=== PATIENT | male | born 1980 | race American Indian/Alaskan Native ===

== ENCOUNTER 2016-09-19 10:56 | Emergency (ER) | payer SELFPAY ==
--- NOTE | 2016-09-19 15:12 | Emergency Department Report ---
ED Upper Extremity Inj HPI - General Chief Complaint: Extremity Problem,Nontraumatic Stated Complaint: FINGER SWELLING Source: patient Mode of arrival: Ambulatory Limitations: No Limitations - History of Present Illness MD Complaint: Injury to:: right, finger (the fourth and fifth interspace digits) -: Gradual Other Extremity Injury: Fingers: Right (between the fourth and fifth digit) Other Injuries: none Handedness: right Severity scale (0 -10): 3 Improves With: none Context: laceration Associated Symptoms: denies other symptoms Treatments Prior to Arrival: cold therapy - Related Data Previous Rx's Medication Instructions Recorded Last Taken Type HYDROcodone/APAP 7.5-325 [[place] 1 each PO Q6HR PRN #30 tablet 03/10/14 Unknown Rx 7.5/325 mg] Meloxicam [Mobic] 7.5 mg PO QDAY #60 tablet 08/22/14 Unknown Rx traMADol [Ultram 50 MG tab] 50 mg PO Q6HR PRN #20 tablet 08/22/14 Unknown Rx Cephalexin [Keflex] 500 mg PO BID #20 capsule 09/19/16 Unknown Rx Ibuprofen [Motrin 800 MG tab] 800 mg PO Q8HR PRN #30 tablet 09/19/16 Unknown Rx Allergies Allergy/AdvReac Type Severity Reaction Status Date / Time No Known Allergies Allergy Verified 02/11/14 00:12 ED Review of Systems ROS: Stated complaint: FINGER SWELLING Other details as noted in HPI Constitutional: denies: chills, fever Cardiovascular: denies: chest pain, palpitations Endocrine: no symptoms reported Gastrointestinal: denies: abdominal pain, nausea, diarrhea Genitourinary: denies: urgency, dysuria Skin: change in color, other ED Past Medical Hx - Past Medical History Previous Medical History?: No - Surgical History Past Surgical History?: No - Social History Smoking Status: Current Every Day Smoker Substance Use Type: Alcohol - Medications Home Medications: Home Medications Medication Instructions Recorded Confirmed Last Taken Type HYDROcodone/APAP 7.5-325 [[place] 1 each PO Q6HR PRN #30 tablet 03/10/14 Unknown Rx 7.5/325 mg] Meloxicam [Mobic] 7.5 mg PO QDAY #60 tablet 08/22/14 Unknown Rx traMADol [Ultram 50 MG tab] 50 mg PO Q6HR PRN #20 tablet 08/22/14 Unknown Rx Cephalexin [Keflex] 500 mg PO BID #20 capsule 09/19/16 Unknown Rx Ibuprofen [Motrin 800 MG tab] 800 mg PO Q8HR PRN #30 tablet 09/19/16 Unknown Rx ED Physical Exam - General Limitations: No Limitations General appearance: alert, in no apparent distress - Head Head exam: Present: atraumatic, normocephalic - Eye Eye exam: Present: normal appearance, EOMI - Cardiovascular Cardiovascular Exam: Present: regular rate - Skin Skin exam: Present: other (erythematous warm cellulitic lesion between the fourth and fifth digit of the right hand. Tender to palpate) ED Course Vital Signs 09/19/16 10:59 Temperature 98.7 F Pulse Rate 78 Blood Pressure 158/108 O2 Sat by Pulse 98 Oximetry Critical care attestation.: If time is entered above; I have spent that time in minutes in the direct care of this critically ill patient, excluding procedure time. ED Disposition Clinical Impression: Cellulitis and abscess of finger, unspecified Disposition: DISCHARGED TO HOME OR SELFCARE Is pt being admited?: No Does the pt Need Aspirin: No Condition: Stable Instructions: Cellulitis (ED) Additional Instructions: Very important for you to take her antibiotic as prescribed and completed. Ibuprofen when necessary for pain management. Please do warm soaks to your hand. Follow-up in the emergency room in 3-5 days for recheck. Prescriptions: Cephalexin [Keflex] 500 mg PO BID #20 capsule Ibuprofen [Motrin 800 MG tab] 800 mg PO Q8HR PRN #30 tablet PRN Reason: Pain Referrals: PRIMARY CARE, [Primary Care Provider] - 3-5 Days Forms: Work/School Release Form(ED)
[2016-09-19 15:24] VITALS: BP 146/100
== END 2016-09-19 15:23 | disposition home or self-care (01) ==
LOC: ED 10:56
DX: L03.011 Cellulitis of right finger (principal); L02.511 Cutaneous abscess of right hand; F17.200 Nicotine dependence, unspecified, uncomplicated
CPT/HCPCS: 99282

== ENCOUNTER 2019-01-19 10:03 | Emergency (ER) | payer SELFPAY ==
[2019-01-19 10:10] VITALS: BP 148/89
--- NOTE | 2019-01-19 10:52 | Emergency Department Report ---
ED Back Pain/Injury HPI - General Chief Complaint: Back Pain/Injury Stated Complaint: BACK PAIN Time Seen by Provider: 01/19/19 10:26 Source: patient Limitations: No Limitations - History of Present Illness Initial Comments: Patient presents to emergency department she complained of lower back pain after lifting a box 24 days ago. Patient denies any issues with his bladder or bowel. MD Complaint: back pain -: Sudden Similar Symptoms Previously: No Radiation: none Severity: moderate Severity scale (0 -10): 5 Quality: dull, aching Consistency: constant Worsens With: movement Context: while lifting Associated Symptoms: denies other symptoms - Related Data Previous Rx's Medication Instructions Recorded Last Taken Type HYDROcodone/APAP 7.5-325 [[place] 1 each PO Q6HR PRN #30 tablet 03/10/14 Unknown Rx 7.5/325 mg] Meloxicam [Mobic] 7.5 mg PO QDAY #60 tablet 08/22/14 Unknown Rx traMADol [Ultram 50 MG tab] 50 mg PO Q6HR PRN #20 tablet 08/22/14 Unknown Rx Cephalexin [Keflex] 500 mg PO BID #20 capsule 09/19/16 Unknown Rx Ibuprofen [Motrin 800 MG tab] 800 mg PO Q8HR PRN #30 tablet 09/19/16 Unknown Rx Acetaminophen/Codeine [Tylenol 1 tab PO Q6H PRN #15 tab 01/19/19 Unknown Rx /Codeine # 3 tab] Naproxen [Naprosyn] 500 mg PO BID PRN #20 tablet 01/19/19 Unknown Rx predniSONE [Deltasone] 20 mg PO DAILY #15 tablet 01/19/19 Unknown Rx Allergies Allergy/AdvReac Type Severity Reaction Status Date / Time No Known Allergies Allergy Verified 02/11/14 00:12 ED Review of Systems ROS: Stated complaint: BACK PAIN Other details as noted in HPI Constitutional: denies: chills, fever Eyes: denies: eye pain, eye discharge, vision change ENT: denies: ear pain, throat pain Respiratory: denies: cough, shortness of breath, wheezing Cardiovascular: denies: chest pain, palpitations Endocrine: no symptoms reported Gastrointestinal: denies: abdominal pain, nausea, diarrhea Genitourinary: denies: urgency, dysuria Musculoskeletal: back pain. denies: joint swelling, arthralgia Skin: denies: rash, lesions Neurological: denies: headache, weakness, paresthesias Psychiatric: denies: anxiety, depression Hematological/Lymphatic: denies: easy bleeding, easy bruising ED Past Medical Hx - Past Medical History Previous Medical History?: No - Surgical History Past Surgical History?: No - Social History Smoking Status: Current Every Day Smoker Substance Use Type: None - Medications Home Medications: Home Medications Medication Instructions Recorded Confirmed Last Taken Type HYDROcodone/APAP 7.5-325 [[place] 1 each PO Q6HR PRN #30 tablet 03/10/14 Unknown Rx 7.5/325 mg] Meloxicam [Mobic] 7.5 mg PO QDAY #60 tablet 08/22/14 Unknown Rx traMADol [Ultram 50 MG tab] 50 mg PO Q6HR PRN #20 tablet 08/22/14 Unknown Rx Cephalexin [Keflex] 500 mg PO BID #20 capsule 09/19/16 Unknown Rx Ibuprofen [Motrin 800 MG tab] 800 mg PO Q8HR PRN #30 tablet 09/19/16 Unknown Rx Acetaminophen/Codeine [Tylenol 1 tab PO Q6H PRN #15 tab 01/19/19 Unknown Rx /Codeine # 3 tab] Naproxen [Naprosyn] 500 mg PO BID PRN #20 tablet 01/19/19 Unknown Rx predniSONE [Deltasone] 20 mg PO DAILY #15 tablet 01/19/19 Unknown Rx ED Physical Exam - General Limitations: No Limitations General appearance: alert, in no apparent distress - Head Head exam: Present: atraumatic, normocephalic - Eye Eye exam: Present: normal appearance - ENT ENT exam: Present: mucous membranes moist - Neck Neck exam: Present: normal inspection - Respiratory Respiratory exam: Present: normal lung sounds bilaterally. Absent: respiratory distress - Cardiovascular Cardiovascular Exam: Present: regular rate, normal rhythm. Absent: systolic murmur, diastolic murmur, rubs, gallop - Rectal Rectal exam: Present: deferred - Extremities Exam Extremities exam: Present: normal inspection - Back Exam Back exam: Present: paraspinal tenderness (paralumbar tenderness on palpation) - Neurological Exam Neurological exam: Present: alert, oriented X3 - Psychiatric Psychiatric exam: Present: normal affect, normal mood - Skin Skin exam: Present: warm, dry, intact, normal color. Absent: rash ED Course Vital Signs 01/19/19 10:08 Temperature 98.1 F Pulse Rate 74 Respiratory 15 Rate Blood Pressure 148/89 [Left] O2 Sat by Pulse 98 Oximetry Critical care attestation.: If time is entered above; I have spent that time in minutes in the direct care of this critically ill patient, excluding procedure time. ED Disposition Clinical Impression: Acute low back pain Disposition: DC-01 TO HOME OR SELFCARE Is pt being admited?: No Does the pt Need Aspirin: No Condition: Stable Instructions: Low Back Strain (ED), Acute Low Back Pain (ED) Additional Instructions: return if worse Referrals: [facility] [Provider Group] - 3-5 Days [facility] [Provider Group] - 3-5 Days Forms: Work/School Excuse Out Patient, Work/School Release Form Time of Disposition: 10:49
== END 2019-01-19 11:05 | disposition home or self-care (01) ==
LOC: ED 10:03
DX: M54.5 Low back pain (principal); F17.200 Nicotine dependence, unspecified, uncomplicated

== ENCOUNTER 2021-05-17 11:41 | Emergency (ER) | payer SELFPAY ==
--- NOTE | 2021-05-17 12:23 | Emergency Department Report ---
ED Back Pain/Injury HPI - General Chief Complaint: Back Pain/Injury Stated Complaint: BACK PAIN Time Seen by Provider: 05/17/21 11:51 Source: patient Limitations: No Limitations - History of Present Illness Initial Comments: 40-year-old male presents to the emergency department complaining of lower back pain. The patient states that he injured his back in 2018 but it flared up again about 1 week ago. He denies any more recent injuries. The pain is localized to his lower mid back without radiation. He denies any associated fever or chills, nausea or vomiting, abdominal pain, dysuria, hematuria, difficulty voiding, or rash. He denies any bowel or bladder dysfunction, saddle numbness, or foot drop. Movement makes it worse but nothing has made it better. He has tried multiple [id number] medications without relief. MD Complaint: back pain Onset/Timin -: week(s) Similar Symptoms Previously: Yes Place: home Radiation: none Severity: severe Severity scale (0 -10): 8 Quality: aching Consistency: constant Improves With: none Worsens With: movement Associated Symptoms: denies other symptoms Treatments Prior to Arrival: NSAIDS, acetaminophen, other medications - Related Data Previous Rx's Medication Instructions Recorded Last Taken Type HYDROcodone/APAP 7.5-325 [[place] 1 each PO Q6HR PRN #30 tablet 03/10/14 Unknown Rx 7.5/325 mg] Meloxicam [Mobic] 7.5 mg PO QDAY #60 tablet 08/22/14 Unknown Rx traMADoL [Ultram 50 MG tab] 50 mg PO Q6HR PRN #20 tablet 08/22/14 Unknown Rx Ibuprofen [Motrin 800 MG tab] 800 mg PO Q8HR PRN #30 tablet 09/19/16 Unknown Rx cephALEXin [Keflex] 500 mg PO BID #20 capsule 09/19/16 Unknown Rx Acetaminophen/Codeine [Tylenol 1 tab PO Q6H PRN #15 tab 01/19/19 Unknown Rx /Codeine # 3 tab] Naproxen [Naprosyn] 500 mg PO BID PRN #20 tablet 01/19/19 Unknown Rx predniSONE [Deltasone] 20 mg PO DAILY #15 tablet 01/19/19 Unknown Rx Etodolac [Lodine] 400 mg PO BID #20 tablet 05/17/21 Unknown Rx methOCARBAMOL [Robaxin TAB] 0 mg PO TID #30 tablet 05/17/21 Unknown Rx Allergies Allergy/AdvReac Type Severity Reaction Status Date / Time No Known Allergies Allergy Verified 05/17/21 11:47 ED Review of Systems ROS: Stated complaint: BACK PAIN Other details as noted in HPI Comment: All other systems reviewed and negative Musculoskeletal: as per HPI, back pain ED Past Medical Hx - Social History Smoking Status: Current Every Day Smoker Substance Use Type: None - Medications Home Medications: Home Medications Medication Instructions Recorded Confirmed Last Taken Type HYDROcodone/APAP 7.5-325 [[place] 1 each PO Q6HR PRN #30 tablet 03/10/14 Unknown Rx 7.5/325 mg] Meloxicam [Mobic] 7.5 mg PO QDAY #60 tablet 08/22/14 Unknown Rx traMADoL [Ultram 50 MG tab] 50 mg PO Q6HR PRN #20 tablet 08/22/14 Unknown Rx Ibuprofen [Motrin 800 MG tab] 800 mg PO Q8HR PRN #30 tablet 09/19/16 Unknown Rx cephALEXin [Keflex] 500 mg PO BID #20 capsule 09/19/16 Unknown Rx Acetaminophen/Codeine [Tylenol 1 tab PO Q6H PRN #15 tab 01/19/19 Unknown Rx /Codeine # 3 tab] Naproxen [Naprosyn] 500 mg PO BID PRN #20 tablet 01/19/19 Unknown Rx predniSONE [Deltasone] 20 mg PO DAILY #15 tablet 01/19/19 Unknown Rx Etodolac [Lodine] 400 mg PO BID #20 tablet 05/17/21 Unknown Rx methOCARBAMOL [Robaxin TAB] 0 mg PO TID #30 tablet 05/17/21 Unknown Rx ED Physical Exam - General Limitations: No Limitations General appearance: alert, in no apparent distress (Sleeping when I walked in the room), obese - Head Head exam: Present: atraumatic, normocephalic - Eye Eye exam: Present: normal appearance - ENT ENT exam: Present: mucous membranes moist - Neck Neck exam: Present: normal inspection - Respiratory Respiratory exam: Present: normal lung sounds bilaterally. Absent: respiratory distress - Cardiovascular Cardiovascular Exam: Present: regular rate, normal rhythm. Absent: systolic murmur, diastolic murmur, rubs, gallop - GI/Abdominal GI/Abdominal exam: Present: soft, normal bowel sounds - Rectal Rectal exam: Present: deferred - Extremities Exam Extremities exam: Present: normal inspection - Back Exam Back exam: Present: normal inspection, tenderness, paraspinal tenderness. Absent: full ROM, CVA tenderness (R), vertebral tenderness, rash noted - Neurological Exam Neurological exam: Present: alert, oriented X3, normal gait - Psychiatric Psychiatric exam: Present: normal affect, normal mood - Skin Skin exam: Present: warm, dry, intact, normal color. Absent: rash ED Course Vital Signs 05/17/21 11:44 Temperature 97.8 F Pulse Rate 81 Respiratory 18 Rate Blood Pressure 128/92 [Right] O2 Sat by Pulse 100 Oximetry ED Medical Decision Making - Medical Decision Making 40-year-old male presented to the emergency department with lower back pain. He has a history of injuries in the past. He denies any recent injuries. He denies any cauda equina symptoms. Symptoms are consistent with musculoskeletal strain. I will offer him treatments here, prescriptions, and referral for primary care follow-up. Return precautions were given, especially for cauda equina symptoms which we discussed. Critical care attestation.: If time is entered above; I have spent that time in minutes in the direct care of this critically ill patient, excluding procedure time. ED Disposition Clinical Impression: Chronic or old strain of lumbosacral spine Disposition: HOME / SELF CARE / HOMELESS Is pt being admited?: No Does the pt Need Aspirin: No Condition: Stable Instructions: Lumbar Sprain Prescriptions: Etodolac [Lodine] 400 mg PO BID #20 tablet methOCARBAMOL [Robaxin TAB] 0 mg PO TID #30 tablet Time of Disposition: 12:25
[2021-05-17] MEDS ORDERED: KETOROLAC 30 MG/1 ML INJ IM ONE (12:26)
[2021-05-17 12:50] VITALS: BP 125/71
== END 2021-05-17 15:23 | disposition home or self-care (01) ==
LOC: ED 11:41
DX: S39.012A Strain of muscle, fascia and tendon of lower back, initial encounter (principal); F17.200 Nicotine dependence, unspecified, uncomplicated; X58.XXXA Exposure to other specified factors, initial encounter; Y93.89 Activity, other specified; Y92.89 Other specified places as the place of occurrence of the external cause; Y99.8 Other external cause status
CPT/HCPCS: 96372; 99282; J1885

== ENCOUNTER 2022-01-04 18:04 | Emergency (ER) | payer SELFPAY ==
--- NOTE | 2022-01-04 18:28 | Event Note ---
ED Screening Note ED Screening Note: fb right arm This initial assessment/diagnostic orders/clinical plan/treatment(s) is/are subject to change based on patients health status, clinical progression and re- assessment by fellow clinical providers in the ED. Further treatment and workup at subsequent clinical providers discretion. Patient/guardian urged not to elope from the ED as their condition may be serious if not clinically assessed and managed. Initial orders include: ft
[2022-01-04 18:30] VITALS: BP 141/93
== END 2022-01-05 01:35 ==
LOC: ED 18:04
DX: S40.851A Superficial foreign body of right upper arm, initial encounter (principal); Z53.21 Procedure and treatment not carried out due to patient leaving prior to being seen by health care provider; X58.XXXA Exposure to other specified factors, initial encounter; Y93.89 Activity, other specified; Y92.89 Other specified places as the place of occurrence of the external cause; Y99.8 Other external cause status

== ENCOUNTER 2022-01-10 10:23 | Emergency (ER) | payer SELFPAY ==
--- NOTE | 2022-01-10 13:39 | Emergency Department Report ---
- General Chief complaint: Skin/Abscess/Foreign Body Stated complaint: WOODEN SPLINTER IN FOREARM Time Seen by Provider: 01/10/22 12:36 Source: patient Mode of arrival: Ambulatory Limitations: No Limitations - History of Present Illness Initial comments: 41-year-old black male presents to the emergency department for evaluation of possible splinter to right forearm. He states that about 5 days ago, he was moving wood and he got a splinter into his right arm and has not been able to get it out on his own. He denies fever, edema, erythema and pain. MD complaint: foreign body -: Sudden, days(s) (5) Tetanus Up to Date: yes Location: RUE Severity scale (0 -10): 0 Associated symptoms: denies other symptoms Treatments Prior to Arrival: none - Related Data Previous Rx's Medication Instructions Recorded Last Taken Type HYDROcodone/APAP 7.5-325 [[place] 1 each PO Q6HR PRN #30 tablet 03/10/14 Unknown Rx 7.5/325 mg] Meloxicam [Mobic] 7.5 mg PO QDAY #60 tablet 08/22/14 Unknown Rx traMADoL [Ultram 50 MG tab] 50 mg PO Q6HR PRN #20 tablet 08/22/14 Unknown Rx Ibuprofen [Motrin 800 MG tab] 800 mg PO Q8HR PRN #30 tablet 09/19/16 Unknown Rx cephALEXin [Keflex] 500 mg PO BID #20 capsule 09/19/16 Unknown Rx Acetaminophen/Codeine [Tylenol 1 tab PO Q6H PRN #15 tab 01/19/19 Unknown Rx /Codeine # 3 tab] Naproxen [Naprosyn] 500 mg PO BID PRN #20 tablet 01/19/19 Unknown Rx predniSONE [Deltasone] 20 mg PO DAILY #15 tablet 01/19/19 Unknown Rx Etodolac [Lodine] 400 mg PO BID #20 tablet 05/17/21 Unknown Rx methOCARBAMOL [Robaxin TAB] 0 mg PO TID #30 tablet 05/17/21 Unknown Rx Allergies Allergy/AdvReac Type Severity Reaction Status Date / Time No Known Allergies Allergy Verified 05/17/21 11:47 Abscess Boil HPI - HPI Chief Complaint: Skin/Abscess/Foreign Body Stated Complaint: WOODEN SPLINTER IN FOREARM Time Seen by Provider: 01/10/22 12:36 Duration: 5 Days Location: Upper Extremity Severity: None History: Yes Foreign Body, No Fever, No Pain, No Purulent Drainage, No Numbness, No Previous History, No Insect Bite Home Medications: Previous Rx's Medication Instructions Recorded Last Taken Type HYDROcodone/APAP 7.5-325 [[place] 1 each PO Q6HR PRN #30 tablet 03/10/14 Unknown Rx 7.5/325 mg] Meloxicam [Mobic] 7.5 mg PO QDAY #60 tablet 08/22/14 Unknown Rx traMADoL [Ultram 50 MG tab] 50 mg PO Q6HR PRN #20 tablet 08/22/14 Unknown Rx Ibuprofen [Motrin 800 MG tab] 800 mg PO Q8HR PRN #30 tablet 09/19/16 Unknown Rx cephALEXin [Keflex] 500 mg PO BID #20 capsule 09/19/16 Unknown Rx Acetaminophen/Codeine [Tylenol 1 tab PO Q6H PRN #15 tab 01/19/19 Unknown Rx /Codeine # 3 tab] Naproxen [Naprosyn] 500 mg PO BID PRN #20 tablet 01/19/19 Unknown Rx predniSONE [Deltasone] 20 mg PO DAILY #15 tablet 01/19/19 Unknown Rx Etodolac [Lodine] 400 mg PO BID #20 tablet 05/17/21 Unknown Rx methOCARBAMOL [Robaxin TAB] 0 mg PO TID #30 tablet 05/17/21 Unknown Rx Allergies/Adverse Reactions: Allergies Allergy/AdvReac Type Severity Reaction Status Date / Time No Known Allergies Allergy Verified 05/17/21 11:47 ED Review of Systems ROS: Stated complaint: WOODEN SPLINTER IN FOREARM Other details as noted in HPI Comment: All other systems reviewed and negative Constitutional: denies: chills, fever Respiratory: denies: shortness of breath Cardiovascular: denies: chest pain, palpitations Gastrointestinal: denies: abdominal pain, nausea, vomiting Neurological: denies: headache ED Past Medical Hx - Past Medical History Previous Medical History?: No - Surgical History Past Surgical History?: No - Social History Smoking Status: Current Every Day Smoker - Medications Home Medications: Home Medications Medication Instructions Recorded Confirmed Last Taken Type HYDROcodone/APAP 7.5-325 [[place] 1 each PO Q6HR PRN #30 tablet 03/10/14 Unknown Rx 7.5/325 mg] Meloxicam [Mobic] 7.5 mg PO QDAY #60 tablet 08/22/14 Unknown Rx traMADoL [Ultram 50 MG tab] 50 mg PO Q6HR PRN #20 tablet 08/22/14 Unknown Rx Ibuprofen [Motrin 800 MG tab] 800 mg PO Q8HR PRN #30 tablet 09/19/16 Unknown Rx cephALEXin [Keflex] 500 mg PO BID #20 capsule 09/19/16 Unknown Rx Acetaminophen/Codeine [Tylenol 1 tab PO Q6H PRN #15 tab 01/19/19 Unknown Rx /Codeine # 3 tab] Naproxen [Naprosyn] 500 mg PO BID PRN #20 tablet 01/19/19 Unknown Rx predniSONE [Deltasone] 20 mg PO DAILY #15 tablet 01/19/19 Unknown Rx Etodolac [Lodine] 400 mg PO BID #20 tablet 05/17/21 Unknown Rx methOCARBAMOL [Robaxin TAB] 0 mg PO TID #30 tablet 05/17/21 Unknown Rx ED Physical Exam - General Limitations: No Limitations General appearance: alert, in no apparent distress - Head Head exam: Present: atraumatic, normocephalic - Eye Eye exam: Present: normal appearance. Absent: conjunctival injection - Neck Neck exam: Present: normal inspection - Respiratory Respiratory exam: Absent: respiratory distress - Cardiovascular Cardiovascular Exam: Present: bradycardia - GI/Abdominal GI/Abdominal exam: Absent: distended - Expanded Upper Extremity Exam Right Forearm Wrist exam: Present: tenderness, abrasion. Absent: normal inspection (F oreign body palpable), swelling, laceration, deformity, crepidus, erythema Vascular: Present: normal capillary refill. Absent: vascular compromise, Pallo - Back Exam Back exam: Present: normal inspection - Neurological Exam Neurological exam: Present: alert, oriented X3 - Psychiatric Psychiatric exam: Present: normal affect, normal mood - Skin Skin exam: Present: warm, dry, normal color ED Course Vital Signs 01/10/22 14:00 Temperature 97.2 F L Pulse Rate 56 L Respiratory 16 Rate Blood Pressure 118/86 [Left] O2 Sat by Pulse 100 Oximetry - Procedure Description Procedures done: Foreign body removal right forearm: Area was cleaned with normal saline and then 1 cc of lidocaine 1% injected at the site. Small incision was made above site where foreign body was palpated, then area was expressed and foreign body came to the surface and was removed with tweezers pack. No foreign body palpated at the procedure, area cleaned and Band-Aid applied. Patient tolerated well. ED Medical Decision Making - Medical Decision Making 41-year-old black male presents to the emergency department for evaluation of possible splinter to right forearm. He states that about 5 days ago, he was moving wood and he got a splinter into his right arm and has not been able to get it out on his own. He denies fever, edema, erythema and pain. Foreign body noted with palpation to right forearm and removed per my procedure note. Patient tolerated well. Patient advised to keep area clean and dry and use Neosporin ointment until small incision heals and follow-up with primary care provider or in the ER for any worsening symptoms. Patient verbalizes understanding of and agreement with plan of care. Critical care attestation.: If time is entered above; I have spent that time in minutes in the direct care of this critically ill patient, excluding procedure time. ED Disposition Clinical Impression: Foreign body in forearm Qualifiers: Encounter type: initial encounter Laterality: right Qualified Code(s): S50.851A - Superficial foreign body of right forearm, initial encounter Disposition: 01 HOME / SELF CARE / HOMELESS Is pt being admited?: No Does the pt Need Aspirin: No Condition: Stable Instructions: Skin Foreign Body Additional Instructions: Keep area clean and dry until it fully heals. Follow-up with primary care provider if worsening symptoms. Return to the emergency department as needed. Referrals: WILIAN MCFADDEN MD [Staff Physician] - 3-5 Days Forms: Work/School Release Form(ED) Time of Disposition: 13:37
[2022-01-10 14:17] VITALS: BP 118/86
== END 2022-01-10 14:20 | disposition home or self-care (01) ==
LOC: ED 10:23
DX: S50.851A Superficial foreign body of right forearm, initial encounter (principal); F17.200 Nicotine dependence, unspecified, uncomplicated; X58.XXXA Exposure to other specified factors, initial encounter; Y93.89 Activity, other specified; Y92.89 Other specified places as the place of occurrence of the external cause; Y99.8 Other external cause status
CPT/HCPCS: 99282